=== PATIENT | female | born 1990 | race Caucasian/White ===

== ENCOUNTER 2016-12-24 18:45 | Emergency (ER) | payer BC ==
[2016-12-24] MEDS ORDERED: Acetaminophen 325 MG Tab PO ONE (19:23)
--- NOTE | 2016-12-24 19:34 | EDM.PDOC ---
ED HPI ENT - General Chief Complaint: ENT Problem Stated Complaint: LUMP ON ROOF OF MOUTH Time Seen by Provider: 12/24/16 19:06 Source of Information: Reports: Patient History Limitations: Reports: No limitations - History of Present Illness INITIAL COMMENTS - FREE TEXT/NARRATIVE: HISTORY AND PHYSICAL: History of present illness: 26-year-old female now presents emergency department because of an ulcer on his the roof of her mouth. She uses a retainer she is unaware right now because it' s too uncomfortable due to this ulcer. The patient has no fevers chills sweats or shaking chills. She is no headache or facial pain. Patient has discomfort on her palate at the site of the ulcer itself. He has a small clear blister she scratched it and tried to get it to drain but nothing came out. Patient otherwise feels well Past medical history: As per history of present illness and as reviewed below otherwise noncontributory. Surgical history: As per history of present illness and as reviewed below otherwise noncontributory. Social history: No reported history of drug or alcohol abuse. Family history: As per history of present illness and as reviewed below otherwise noncontributory. Physical exam: 4 mm papule with vesicle with clear fluid posterior aspect hard palate to the right of the midline no fluctuance or crepitus. Isolated lesion the surrounding tissue swelling or other masses. Normal oropharynx no stridor HEENT: Atraumatic, normocephalic, pupils reactive, negative for conjunctival pallor or scleral icterus, mucous membranes moist, throat clear, neck supple, nontender, trachea midline. Lungs: Clear to auscultation, breath sounds equal bilaterally, chest nontender. Heart: S1S2, regular, negative for clicks, rubs, or JVD. Abdomen: Soft, nondistended, nontender. Negative for masses or hepatosplenomegaly. Negative for costovertebral tenderness. Pelvis: Stable nontender. Genitourinary: Deferred. Rectal: Deferred. Extremities: Atraumatic, negative for cords or calf pain. Neurovascular unremarkable. Neuro: Awake, alert, oriented. Cranial nerves grossly unremarkable. Motor and sensory unremarkable throughout. Exam nonfocal. Diagnostics: [] Therapeutics: [] Impression: [] Plan: [ oral ulcer likely viral etiology. Uncomplicated and well-appearing patient afebrile with unremarkable vital signs with no signs of systemic illness. Patient aware to take NSAIDs Tylenol and followup PCP for reevaluation and referral to ENT as needed. Patient will return for signs of bacterial superinfection or evolution of evidence of abscess Definitive disposition and diagnosis as appropriate pending reevaluation and review of above. - Related Data Allergies/ADRs: Allergies Allergy/AdvReac Type Severity Reaction Status Date / Time promethazine Allergy Other Verified 12/24/16 19:15 Home Meds: Home Meds . [No Known Home Meds] 12/24/16 [History] Past Medical History HEENT History: Reports: None Cardiovascular History: Reports: None Respiratory History: Reports: None Gastrointestinal History: Reports: None Genitourinary History: Reports: None [employer] History: Reports: None Musculoskeletal History: Reports: None Neurological History: Reports: None Psychiatric History: Reports: None Endocrine/Metabolic History: Reports: None Hematologic History: Reports: None Oncologic (Cancer) History: Reports: None Dermatologic History: Reports: None - Infectious Disease History Infectious Disease History: Reports: None Social & Family History - Family History Family Medical History: Noncontributory - Tobacco Use Smoking Status *Q: Current Every Day Smoker Years of Tobacco use: 5 Packs/Tins Daily: 1 - Caffeine Use Caffeine Use: Reports: Coffee - Recreational Drug Use Recreational Drug Use: No ED ROS ENT - Review of Systems Review Of Systems: See Below (History of present illness) ED EXAM, ENT - Physical Exam Exam: See Below (History of present illness) Course - Vital Signs Last Recorded V/S: Last Vital Signs Temp 36.9 C 12/24/16 19:15 Pulse 84 12/24/16 19:15 Resp 16 12/24/16 19:15 BP 116/68 12/24/16 19:15 Pulse Ox 98 12/24/16 19:15 - Orders/Labs/Meds Meds: Medications Discontinued Medications Generic Name Dose Route Start Last Admin Trade Name Freq PRN Reason Stop Dose Admin Acetaminophen 1,000 mg 12/24/16 19:23 12/24/16 19:29 Tylenol PO 12/24/16 19:24 1,000 mg NOW ONE Administration Departure - Departure Time of Disposition: 19:35 Disposition: Home, Self-Care 01 Condition: good Clinical Impression: Oral ulceration Instructions: Stomatitis, [id number] Referrals: PCP,None [Primary Care Provider] - Forms: ED Department Discharge Additional Instructions: You have an oral ulcer on the roof of your mouth. Do warm salt water swishes and take motrin and tylenol as needed for pain. topical oral ulcer treatment over the counter may help. Follow up with your doctor 1-2 days for reevaluation and referral to ENT for reevaluation and treatment if it does not resolve. Return for new severe or worsening symptoms.
[2016-12-24 20:12] VITALS: BP 122/56
== END 2016-12-24 19:50 | disposition home or self-care (01) ==
LOC: MW.ED 18:45
DX: K12.1 Other forms of stomatitis (principal); F17.210 Nicotine dependence, cigarettes, uncomplicated; Z88.6 Allergy status to analgesic agent
CPT/HCPCS: 99282; A9270; 99283